=== PATIENT | male | born 1975 | race Caucasian/White ===

== ENCOUNTER 2017-01-28 14:46 | Emergency (ER) | payer OTHER ==
[~2017-01-28] VITALS: Ht 177.8 cm; Wt 86.4 kg
[2017-01-28] MEDS ORDERED: METH10 PO (15:02)
[2017-01-28 15:22] LABS: APPEARANCE,URINE CLEAR (CLEAR); GLUCOSE, URINE (UA) NEGATIVE (NEGATIVE); KETONES,URINE NEGATIVE (NEGATIVE); LEUKOCYTE ESTERASE ,URINE SMALL (NEGATIVE); OCCULT BLOOD,URINE NEGATIVE (NEGATIVE); PH,URINE 5.5 (5.0-8.0); PROTEIN,URINE NEGATIVE (NEGATIVE)
[2017-01-28 15:23] LABS: ADD UA MICROSCOPIC YES
[2017-01-28 15:29] LABS: RBC,URINE None Seen /HPF (0-2); SQUAMOUS EPITHELIAL CELL,UR Rare /LPF (None Seen)
[2017-01-28 17:03] VITALS: BP 124/73
[2017-01-28] MEDS ORDERED: KETOROLAC TROMETHAMINE 30 MG/ML VIAL IM ONE (17:15)
== END 2017-01-28 17:43 | disposition home or self-care (01) ==
LOC: EMS 14:49
DX: R07.81 Pleurodynia (principal)
CPT/HCPCS: 71101; 81001; 87086; 96372; 99285; J1885